=== PATIENT | male | born 1960 | race Caucasian/White ===

== ENCOUNTER 2018-11-04 07:02 | Day surgery (SDC) | payer OTHER ==
[2018-11-04] MEDS ORDERED: PROPOFOL 40 ML (08:26)
[2018-11-04] MEDS ORDERED: LIDOCAINE 2% (SDV) 5 ML INJ (08:26)
[2018-11-04] MEDS ORDERED: ONDANSETRON 4 MG INJ IV (08:30)
[2018-11-04] MEDS ORDERED: morphine 2 MG INJ IV (08:30)
== END 2018-11-04 14:05 | disposition home or self-care (01) ==
LOC: GIL 07:02
DX: Z86.010 Personal history of colon polyps (principal); D12.2 Benign neoplasm of ascending colon; D12.4 Benign neoplasm of descending colon; E11.9 Type 2 diabetes mellitus without complications; Z79.84 Long term (current) use of oral hypoglycemic drugs
CPT/HCPCS: 45385; 82962; 88305